=== PATIENT | male | born 1975 | race Caucasian/White ===

== ENCOUNTER 2020-12-23 18:11 | Emergency (ER) | payer BC ==
[~2020-12-23] VITALS: Ht 167.6 cm; Wt 72.1 kg
[2020-12-23 18:20] VITALS: BP 130/93
--- NOTE | 2020-12-23 18:23 | NUR ---
to lobby a/w bed ambulatory
--- NOTE | 2020-12-23 19:48 | NUR ---
KELLD WITH PATIENT FOR MEDICAL EVALUATION IN A.
[2020-12-23] MEDS ORDERED: diphenhydrAMINE 50 MG/ML VIAL IVP ONE (19:50)
[2020-12-23] MEDS ORDERED: NACL 0.9% 1,000 ML IV ONE (19:50)
[2020-12-23] MEDS ORDERED: EPINEPHrine 1 MG/ML AMP IM ONE (19:50)
[2020-12-23] MEDS ORDERED: FAMOTIDINE 20 MG/2 ML VIAL IVP ONE (19:50)
--- NOTE | 2020-12-23 19:52 | NUR ---
PT TAKEN TO BED 8
--- NOTE | 2020-12-23 20:05 | NUR ---
45/M C/O BEE STING ON LOWER LIP PRIOR. PT COMPLAINING OF PAIN. SWELLING NOTED UPON ASSESSMENT. PT DENIES ANY SOB. TETANUS VACCINE UTD. DENIES PMH. ALLERGY: PCN, BEES
[2020-12-23] MEDS ORDERED: DEXAMETHASONE 10 MG/ML VIAL IVP ONE (22:30)
[2020-12-24] MEDS ORDERED: EPIN1KIT31 IM ×2 (01:13→01:32)
[2020-12-24] MEDS ORDERED: FAMO-90 PO ×2 (01:13→01:32)
[2020-12-24] MEDS ORDERED: DIPH25TA53 PO ×2 (01:13→01:32)
[2020-12-24 01:20] VITALS: BP 102/71
--- NOTE | 2020-12-24 01:20 | NUR ---
IV removed, catheter intact and site benign. Applied folded 4x4 gauze and tape to stop bleeding.
--- NOTE | 2020-12-24 01:35 | NUR ---
Patient discharged with v/s stable. Written and verbal after care instructions given and explained. Patient alert, oriented and verbalized understanding of instructions. Ambulatory with steady gait. All questions addressed prior to discharge. ID band removed. Patient advised to follow up with PMD. Rx of epi-pen, benadryl, pepcid given. Patient educated on indication of medication including possible reaction and side effects. Opportunity to ask questions provided and answered.
== END 2020-12-24 01:35 | disposition home or self-care (01) ==
LOC: MED 18:11
DX: T63.441A Toxic effect of venom of bees, accidental (unintentional), initial encounter (principal); T78.2XXA Anaphylactic shock, unspecified, initial encounter; X58.XXXA Exposure to other specified factors, initial encounter
CPT/HCPCS: 96361; 96372; 96374; 96375; 99285; J0171; J1100; J1200; J3490; J7030